=== PATIENT | male | born 1985 | race Caucasian/White ===

== ENCOUNTER 2024-03-25 08:46 | Outpatient (CLI) | payer OTHER ==
[2024-03-25 09:36] LABS: #Basophils 0.09 10x3/uL (0.0-0.2); #Eosinphils 0.28 10x3/uL (0.0-0.5); #Neutrophils 5.06 10x3/uL (1.5-8.4); %Eosinophils 3.1 % (0.0-6.0); %Lymphocytes 28.6 % (18.0-47.0); %Neutrophils 55.6 % (40.0-75.0); Hematocrit 47.7 % (38.8-50.0); Hemoglobin 17.7 g/dL (13.5-17.5); Mean Corpuscular HGB CONC 37.1 g/dL (32.0-36.0); Mean Corpuscular Hemoglobin 31.9 pg (27.0-33.0); Mean Corpuscular Volume 86.1 fL (81.2-95.1); Mean Platelet Volume 10.7 fL (7.4-10.4); Platelet Count 218 10x3/uL (150-450); RBC Distribution Width 11.8 % (11.5-14.5); Red Blood Cell (RBC) Count 5.54 10x6/uL (4.32-5.72); White Blood Cell (WBC) Count 9.1 10x3/uL (3.5-10.5)
== END 2024-03-25 08:47 | disposition home or self-care (01) ==
LOC: LABBT 08:46
PROVIDERS: ATTEND Orthopaedic Surgery Hand Surgery
DX: Z01.812 Encounter for preprocedural laboratory examination (principal); S63.591A Other specified sprain of right wrist, initial encounter; M67.40 Ganglion, unspecified site
CPT/HCPCS: 85025

== ENCOUNTER 2024-03-28 06:01 | Day surgery (SDC) | payer OTHER ==
[2024-03-25 09:13] VITALS: BMI 31.9
[2024-03-28] MEDS ORDERED: EPINEPHrine 1 MG/ML VIAL ONE (06:45)
[2024-03-28] MEDS ORDERED: Bacitracin Zinc Ointment 30 gm TUBE ONE (06:45)
[2024-03-28] MEDS ORDERED: Bupivacaine PF 0.5% 30 ML VIAL ONE (06:45)
[2024-03-28] MEDS ORDERED: Midazolam HCl 2 mg/2 ml Vial ONE (08:04)
[2024-03-28] MEDS ORDERED: fentaNYL 50 mcg/mL 1 mL Vial ONE (08:04)
[2024-03-28] MEDS ORDERED: Ropivacaine 0.5% HCl/PF (150 MG/30 ML VIAL) ONE (08:05)
[2024-03-28] MEDS ORDERED: Lidocaine 1% (PF) 30 ML VIAL ONE (08:05)
[2024-03-28] MEDS ORDERED: PROPOFOL 20 ML ONE (08:39)
[2024-03-28] MEDS ORDERED: CEFAZOLIN 2 GM VIAL ONE (08:53)
[2024-03-28] MEDS ORDERED: fentaNYL PF 100 MCG/2 ML SYRINGE ONE (08:59)
[2024-03-28] MEDS ORDERED: Dexamethasone 20 MG/5 ML VIAL ONE (09:29)
[2024-03-28] MEDS ORDERED: Ondansetron PF 4 MG/2 ML Vial ONE (09:29)
[2024-03-28] MEDS ORDERED: Ketorolac Tromethamine 30 MG (1 mL) VIAL ONE ×2 (10:24→13:14)
[2024-03-28] MEDS ORDERED: Sodium Chloride 0.9% 100 ML ONE (12:50)
== END 2024-03-28 14:23 | disposition home or self-care (01) ==
LOC: SDC 06:01
PROVIDERS: ATTEND Orthopaedic Surgery Hand Surgery
PROC: 0LB50ZZ Excision of Right Lower Arm and Wrist Tendon, Open Approach (ICD-10-PCS; principal; 2024-03-28)
PROC: 0XQG0ZZ Repair Right Wrist Region, Open Approach (ICD-10-PCS; principal; 2024-03-28)
PROC: 0RBN4ZZ Excision of Right Wrist Joint, Percutaneous Endoscopic Approach (ICD-10-PCS; principal; 2024-03-28)
PROC: 3E0T3BZ Introduction of Anesthetic Agent into Peripheral Nerves and Plexi, Percutaneous Approach (ICD-10-PCS; principal; 2024-03-28)
DX: S63.591A Other specified sprain of right wrist, initial encounter (principal); M67.431 Ganglion, right wrist; M65.88 Other synovitis and tenosynovitis, other site; Z87.891 Personal history of nicotine dependence; Z90.89 Acquired absence of other organs; X58.XXXA Exposure to other specified factors, initial encounter
CPT/HCPCS: 88304; A6223; C1713; J0171; J0665; J1100; J1885; J2001; J2250; J2405; J2704; J2795; J3010; J3490